=== PATIENT | female | born 1970 | race Caucasian/White ===

== ENCOUNTER 2021-01-26 10:04 | Emergency (ER) | payer OTHER, SELFPAY ==
--- NOTE | 2021-01-26 10:09 | ED.URI ---
HPI - URI/Sore Throat General Chief Complaint: Upper Respiratory Infection Stated Complaint: Sinus,Cough Time Seen by Provider: 01/26/21 10:24 Source: patient and RN notes reviewed Mode of arrival: ambulatory Limitations: no limitations History of Present Illness HPI Narrative: 51-year-old female presents with concern for 3 to 4-day history of sinus congestion, cough, runny nose. Reports she is vaccinated for flu and Covid. She denies shortness of breath, body aches, chills, fever, sweats. She denies any nausea, vomiting, diarrhea. Reports she has been taking Mucinex and Flonase with some relief. MD elicited complaint: nasal congestion Related Data Home Medications Medication Instructions Recorded Confirmed lisinopril-hydrochlorothiazide 1 tablet PO DAILY 01/26/21 01/26/21 [id number] 1 tablet PO DAILY 01/26/21 01/26/21 [Adults Multivitamin] simvastatin 20 mg PO DAILY 01/26/21 01/26/21 topiramate 50 mg PO PRN PRN 01/26/21 01/26/21 venlafaxine 150 mg PO DAILY 01/26/21 01/26/21 Allergies Allergy/AdvReac Type Severity Reaction Status Date / Time No Known Allergies Allergy Mild Verified 01/26/21 10:21 Review of Systems Review of Systems: CONSTITUTIONAL: Denies malaise, chills, sweats, or fever. EYES: Denies visual changes, redness, or discharge. ENT: Reports rhinorrhea, congestion. Denies sinus pain, otalgia and sore throat. CARDIOVASCULAR: Denies chest pain, palpitations, or edema. RESPIRATORY: Reports cough. Denies dyspnea. GASTROINTESTINAL: Denies abdominal pain, nausea, vomiting, diarrhea SKIN: Denies rash or itching. MUSCULOSKELETAL: Denies myalgia. NEUROLOGIC: Denies headache. All systems reviewed & are unremarkable except as noted in HPI and below PMFSH Family History Family History (Updated 11/03/13 @ 07:13 by DOCTOR UNKNOWN) Other Hypertension Social History Social History Alcohol intake: never Comments At time of signature, agree with nursing past medical, surgical, social and family history. There is no relevant family history pertinent to the presenting complaint Exam Narrative: GENERAL: Well-appearing, well-nourished, and in no acute distress. HEAD: Normocephalic EYES: PERRLA, conjunctivae clear ENT: Nares clear, clear discharge. Mucous membranes moist. TM pearly mclaughlin with sharp light reflex bilaterally; no tragal tenderness. Oropharynx not erythematous without lesions. Tonsils not enlarged and without exudate, no drooling, slightly hoarse voice, no trismus, uvula midline. NECK: Supple. No lymphadenopathy CHEST: Clear to auscultation, breath sounds equal. No wheezing, rhonchi, rales, or stridor. No respiratory distress, speaks in full sentences. HEART: Regular rate and rhythm. No murmur heard. SKIN: Warm, dry, no rash. NEURO: Alert and oriented x3. PSYCH: Normal mood and affect Course Course Emergency Course: Patient is aware of diagnosis, understands and agrees to treatment plan. Anticipatory guidance given. Patient agrees to follow-up as directed and is aware of reasons to seek care at the emergency department. Portions of this record may have been created with voice recognition software Vital Signs Vital signs: Reviewed. Patient has history of hypertension MDM - URI/Sore Throat MDM Narrative Medical decision making narrative: Differential diagnosis considered: Saini virus, strep pharyngitis, allergic rhinitis, upper respiratory tract infection, sinusitis, rhinosinusitis, nasopharyngitis. viral pharyngitis, otitis media, otitis externa, pneumonia, bronchitis, viral cough syndrome, viral syndrome, and influenza. Exam findings show no acute concerns or changes; patient is non-toxic appearing and is in no distress. Patient is appropriate for outpatient treatment and follow-up. Critical Care Time Critical Care Time Critical Care Time: No Discharge Plan Discharge Clinical Impression: Upper respiratory infection Qualifiers: URI type: unspecified viral UR
[2021-01-26 10:16] VITALS: BP 144/88; PULSE 106; RESP 16; TEMP 36.6; O2SAT 98
[2021-01-26 10:20] VITALS: BP 144/88; PULSE 106; RESP 16; TEMP 36.6; O2SAT 98
== END 2021-01-26 10:36 | disposition home or self-care (01) ==
PROVIDERS: Emergency Provider Nurse Practitioner
DX: J06.9 Acute upper respiratory infection, unspecified (principal); E78.00 Pure hypercholesterolemia, unspecified; I10 Essential (primary) hypertension; K21.9 Gastro-esophageal reflux disease without esophagitis; F41.9 Anxiety disorder, unspecified; F32.A Depression, unspecified
CPT/HCPCS: 99213; G0463

== ENCOUNTER 2023-02-07 09:05 | Emergency (ER) | payer OTHER, SELFPAY ==
[2023-02-07 09:15] VITALS: BP 143/66; PULSE 105; RESP 16; TEMP 36.5; O2SAT 97
--- NOTE | 2023-02-07 09:35 | ED.URI ---
HPI - URI/Sore Throat General Chief Complaint: Upper Respiratory Infection Stated Complaint: Congestion,Cough Time Seen by Provider: 02/07/23 09:17 Source: patient and RN notes reviewed Mode of arrival: ambulatory Limitations: no limitations History of Present Illness HPI Narrative: Patient presents today with a 2 day history of congestion, rhinorrhea, cough, postnasal drip. Denies fever, chest pain, shortness of breath, sore throat. She has been using Flonase, Zyrtec, ibuprofen, and Mucinex with some intermittent relief. States has been and son are sick at home with similar symptoms. Denies COPD or asthma. She is a nonsmoker. Related Data Home Medications Medication Instructions Recorded Confirmed multivit with minerals-iron 18 1 tablet PO DAILY 01/26/21 02/07/23 mg-folic ac 400 mcg-vit K 25 mcg tablet (Adults Multivitamin) simvastatin 20 mg tablet 20 mg PO DAILY 01/26/21 02/07/23 topiramate 50 mg tablet 50 mg PO PRN PRN Migraine Headache 01/26/21 02/07/23 venlafaxine 150 mg 150 mg PO DAILY 01/26/21 02/07/23 capsule,extended release 24 hr chlorthalidone 25 mg tablet 25 mg PO DAILY 02/07/23 02/07/23 lisinopril 40 mg tablet 40 mg PO DAILY 02/07/23 02/07/23 metformin 500 mg tablet,extended 500 mg PO BID 02/07/23 02/07/23 release 24 hr norethindrone acetate 1 mg-ethinyl 1 tablet PO DAILY 02/07/23 02/07/23 estradiol 20 mcg tablet Allergies Allergy/AdvReac Type Severity Reaction Status Date / Time No Known Allergies Allergy Mild Verified 02/07/23 09:06 Review of Systems Review of Systems: CONSTITUTIONAL: Denies body aches, fever, chills, or sweats. EYES: Denies visual changes, redness, or discharge. ENT: Denies sore throat, or otalgia.+ rhinorrhea, congestion, postnasal drip CARDIOVASCULAR: Denies chest pain, palpitations, or edema. RESPIRATORY: Denies dyspnea.+ cough GASTROINTESTINAL: Denies abdominal pain, nausea, vomiting, or diarrhea. GENITOURINARY: Denies dysuria or hematuria. SKIN: Denies rash, itching, or wounds. MUSCULOSKELETAL: Denies back pain, joint pain, or myalgia. NEUROLOGIC: Denies headache, numbness, tingling, or weakness. PSYCH: Denies depression or anxiety. [facility] Past Medical History Medical History (Updated 02/07/23 @ 09:40 by Patrica Arnold, COREEN, ) High cholesterol Hypertension Family History Family History Other Hypertension Social History Social History Alcohol intake: never Comments At time of signature, I have reviewed and agree with nursing past medical, surgical, social and family history unless otherwise noted. Please see nursing chart for further information. There is no relevant family history pertinent to the presenting complaint Exam Narrative: GENERAL: Mildly ill-appearing, well-nourished, and in no acute distress. HEAD: Normocephalic, atraumatic. EYES: EOMI. No redness or drainage. Conjunctivae normal. ENT: Mucous membranes pink and moist. Nares congested. No rhinorrhea. TMs normal bilaterally. Throat normal. Uvula midline. NECK: Normal AROM. Supple. No lymphadenopathy. CHEST: No respiratory distress. Clear to auscultation. HEART: Regular rate and rhythm. No murmur appreciated. Normal peripheral pulses. EXTREMITIES: Normal range of motion. No edema. SKIN: Warm, dry, no rash. Capillary refill normal. Normal skin turgor. NEURO: No focal deficits. Alert and oriented x3. Gait steady. PSYCH: Normal affect. No signs of depression or anxiety. Course Course Level of Care: Express Care Visit Vital Signs Vital signs: Vital Signs Temperature 97.7 F 02/07/23 09:15 Pulse Rate 105 H 02/07/23 09:15 Respiratory Rate 16 02/07/23 09:15 Blood Pressure 143/66 H 02/07/23 09:15 Pulse Oximetry 97 02/07/23 09:15 Oxygen Delivery Room Air 02/07/23 09:15 Temperature 97.7 F 02/07/23 09:15 Pul
== END 2023-02-07 09:37 | disposition home or self-care (01) ==
PROVIDERS: Emergency Provider Nurse Practitioner
DX: J06.9 Acute upper respiratory infection, unspecified (principal); E78.00 Pure hypercholesterolemia, unspecified; I10 Essential (primary) hypertension
CPT/HCPCS: 99211; G0463